=== PATIENT | female | born 1975 | race Caucasian/White ===

== ENCOUNTER → 2017-01-11 | Outpatient (REF) | payer OTHER ==
[~2017-01-11] MED LIST: BENZ5TA PO; IBUP100SUS FT; PERCOCET FT; PRENTAB74 PO; RISP1TAB3 PO; TRAZ100T2 PO; TRIL600T PO; VALT1TAB PO; no home medications
[2017-01-11 15:06] LABS: PROGESTERONE < 0.2 NG/ML
[2017-01-11 15:07] LABS: ESTRADIOL 37.1 PG/ML; LUTEINIZING HORMONE 6.1 mIU/mL
[2017-01-11 15:13] LABS: FREE T4 1.02 NG/DL (0.76-1.46)
[2017-01-14 00:06] LABS: ESTRONE SERUM 168 pg/mL (.)
== END ==
LOC: M WHC 13:52
PROVIDERS: ATTEND Obstetrics & Gynecology
DX: N95.9 Unspecified menopausal and perimenopausal disorder (principal)

== ENCOUNTER → 2019-05-17 | Outpatient (CLI) | payer OTHER ==
[~2019-05-17] MED LIST changes: +IBUP100S44 FT; -IBUP100SUS FT; +OXYC1TAB23 FT; -PERCOCET FT
--- NOTE | 2019-05-17 15:20 | REP ---
MRI cervical spine: 05/17/2019. Indication: Cervical radiculopathy. Comparison: None. Technique: Multiplanar short and long TR sequences of the cervical spine were performed without IV Gadolinium. Findings: There is straightening of the cervical lordosis. No worrisome marrow or cord signal is present. Disc dessication is present throughout the cervical spine with the exception of C7/T1. The vertebral artery flow voids are unremarkable with right-sided dominance noted. CT/C3: Unremarkable. C3/C4: Unremarkable. C4/C5: Minimal disc bulges present without significant spinal canal or neural foraminal narrowing. C5/C6: Minimal disc bulge is present diffusely without significant spinal canal or neural foraminal narrowing. C6/C7: Unremarkable. C7/T1: Unremarkable. Impression: Mild degenerative sequelae of the cervical spine without significant spinal canal / neural foraminal narrowing. Electronically Signed by Mukesh Loyola DO 05/17/2019 03:11 P
== END ==
LOC: M RAD 12:35
PROVIDERS: ATTEND Physician Assistant
DX: M50.221 Other cervical disc displacement at C4-C5 level (principal); M50.222 Other cervical disc displacement at C5-C6 level; M43.12 Spondylolisthesis, cervical region